=== PATIENT | female | born 1975 | race American Indian/Alaskan Native ===

== ENCOUNTER 2019-04-03 07:53 | Emergency (ER) | payer MEDICAID, OTHER ==
[2019-04-03 07:58] VITALS: BP 142/96
--- NOTE | 2019-04-03 08:33 | Emergency Department Report ---
ED ENT HPI - General Chief complaint: Earache Stated complaint: BOTH EARS CLOGGED Time Seen by Provider: 04/03/19 08:27 Source: patient Mode of arrival: Ambulatory Limitations: No Limitations - History of Present Illness Initial comments: 43-year-old -Citizen Of The [place] female presents to the emergency room for clogged ears since last . Patient tried using [id number] eardrops without much success. Patient does admit to have been a past medical history of asthma and seasonal allergies. He chills or nausea no vomiting no headache. MD complaint: ear pain Onset/Timin -: days(s) Location: R ear, L ear Severity: moderate Quality: aching Consistency: constant Improves with: none Worsens with: none Associated Symptoms: hearing loss. denies: fever, cough, pain with swallowing, sore throat, discharge from ear - Related Data Home Medications Medication Instructions Recorded Confirmed Last Taken Cetirizine HCl 10 mg PO DAILY 11/30/14 11/30/14 11/29/14 Fluticasone Propionate 2 sprays INNOSTRIL DAILY 11/30/14 11/30/14 11/29/14 Fluticasone/Salmeterol [Advair 1 puff INHALATION BID 11/30/14 11/30/14 11/30/14 05:00 Diskus 250-50 mcg] Previous Rx's Medication Instructions Recorded Last Taken Type HYDROcodone/APAP 5-325 [Weir 1 each PO Q6HR PRN #30 tablet 11/30/14 Unknown Rx 5-325 mg TAB] Ibuprofen [Motrin] 800 mg PO TID PRN #60 tablet 11/30/14 Unknown Rx ALBUTEROL Inhaler (OR & NICU) 2 puff IH QID PRN #1 inhalation 08/04/17 Unknown Rx [ProAir HFA Inhaler] Oxymetazoline 0.05% [Afrin] 1 spray NS BID PRN #1 bottle 04/03/19 Unknown Rx Phenylephrine HCl [Sinus PE 10 mg PO TID PRN #30 tablet 04/03/19 Unknown Rx Decongestant] Allergies Allergy/AdvReac Type Severity Reaction Status Date / Time No Known Allergies Allergy Verified 04/03/19 07:54 ED Dental HPI - General Chief complaint: Earache Stated complaint: BOTH EARS CLOGGED Time Seen by Provider: 04/03/19 08:27 Source: patient Mode of arrival: Ambulatory Limitations: No Limitations - Related Data Home Medications Medication Instructions Recorded Confirmed Last Taken Cetirizine HCl 10 mg PO DAILY 11/30/14 11/30/14 11/29/14 Fluticasone Propionate 2 sprays INNOSTRIL DAILY 11/30/14 11/30/14 11/29/14 Fluticasone/Salmeterol [Advair 1 puff INHALATION BID 11/30/14 11/30/14 11/30/14 05:00 Diskus 250-50 mcg] Previous Rx's Medication Instructions Recorded Last Taken Type HYDROcodone/APAP 5-325 [Weir 1 each PO Q6HR PRN #30 tablet 11/30/14 Unknown Rx 5-325 mg TAB] Ibuprofen [Motrin] 800 mg PO TID PRN #60 tablet 11/30/14 Unknown Rx ALBUTEROL Inhaler (OR & NICU) 2 puff IH QID PRN #1 inhalation 08/04/17 Unknown Rx [ProAir HFA Inhaler] Oxymetazoline 0.05% [Afrin] 1 spray NS BID PRN #1 bottle 04/03/19 Unknown Rx Phenylephrine HCl [Sinus PE 10 mg PO TID PRN #30 tablet 04/03/19 Unknown Rx Decongestant] Allergies Allergy/AdvReac Type Severity Reaction Status Date / Time No Known Allergies Allergy Verified 04/03/19 07:54 ED Review of Systems ROS: Stated complaint: BOTH EARS CLOGGED Other details as noted in HPI Comment: All other systems reviewed and negative ENT: ear pain ED Past Medical Hx - Past Medical History Hx Hypertension: No Hx Seizures: No Hx Asthma: Yes - Surgical History Additional Surgical History: x 2 - Social History Smoking Status: Never Smoker - Medications Home Medications: Home Medications Medication Instructions Recorded Confirmed Last Taken Type Cetirizine HCl 10 mg PO DAILY 11/30/14 11/30/14 11/29/14 History Fluticasone Propionate 2 sprays INNOSTRIL DAILY 11/30/14 11/30/14 11/29/14 History Fluticasone/Salmeterol [Advair 1 puff INHALATION BID 11/30/14 11/30/14 11/30/14 05:00 History Diskus 250-50 mcg] HYDROcodone/APAP 5-325 [Weir 1 each PO Q6HR PRN #30 tablet 11/30/14 Unknown Rx 5-325 mg TAB] Ibuprofen [Motrin] 800 mg PO TID PRN #60 tablet 11/30/14 Unknown Rx ALBUTEROL Inhaler (OR & NICU) 2 puff IH QID PRN #1 inhalation 08/04/17 Unknown Rx [ProAir HFA Inhaler] Oxymetazoline 0.05% [Afrin] 1 spray NS BID PRN #1 bottle 04/03/19 Unknown Rx Phenylephrine HCl [Sinus PE 10 mg PO TID PRN #30 tablet 04/03/19 Unknown Rx Decongestant] ED Physical Exam - General Limitations: No Limitations General appearance: alert, in no apparent distress - Head Head exam: Present: atraumatic, normocephalic - Eye Eye exam: Present: normal appearance - Expanded ENT Exam Expanded TM/Canal exam: Loss of Landmarks: Right TM, Left TM (bilateral retraction of the tympanic membrane) - Neck Neck exam: Present: normal inspection - Neurological Exam Neurological exam: Present: alert, oriented X3 - Psychiatric Psychiatric exam: Present: normal affect, normal mood - Skin Skin exam: Present: warm, dry, intact, normal color. Absent: rash ED Course Vital Signs 04/03/19 07:57 Temperature 97.8 F Pulse Rate 79 Respiratory 18 Rate Blood Pressure 142/96 O2 Sat by Pulse 100 Oximetry ED Medical Decision Making - Medical Decision Making 43-year-old female comes in for bilateral ears being clogged. Patient has retracted tympanic membranes both ears. Patient be given a prescription for Afrin and Sudafed. Discussed the patient to take medication and to follow up with ear nose and throat provider. Critical care attestation.: If time is entered above; I have spent that time in minutes in the direct care of this critically ill patient, excluding procedure time. ED Disposition Clinical Impression: Retracted tympanic membrane Disposition: [id number] TO HOME OR SELFCARE Is pt being admited?: No Does the pt Need Aspirin: No Condition: Stable Instructions: Earache (ED) Additional Instructions: Please take medication as prescribed. Follow up with the ear nose and throat provider I have listed one below for your convenience. Prescriptions: Oxymetazoline 0.05% [Afrin] 1 spray NS BID PRN #1 bottle PRN Reason: Nasal Congestion Phenylephrine HCl [Sinus PE Decongestant] 10 mg PO TID PRN #30 tablet PRN Reason: Nasal Congestion Referrals: JANNY CUETO MD [Staff Physician] - 3-5 Days
== END 2019-04-03 08:40 | disposition home or self-care (01) ==
LOC: ED 07:53
DX: H73.893 Other specified disorders of tympanic membrane, bilateral (principal)
CPT/HCPCS: 99282

== ENCOUNTER 2019-07-31 08:39 | Emergency (ER) | payer OTHER, MEDICAID ==
[2019-07-31 08:56] VITALS: BP 144/84
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
== END 2019-07-31 09:49 | disposition home or self-care (01) ==
LOC: ED 08:39
DX: S39.012A Strain of muscle, fascia and tendon of lower back, initial encounter (principal); S46.911A Strain of unspecified muscle, fascia and tendon at shoulder and upper arm level, right arm, initial encounter; J45.909 Unspecified asthma, uncomplicated; Z79.899 Other long term (current) drug therapy; V49.59XA Passenger injured in collision with other motor vehicles in traffic accident, initial encounter; Y93.89 Activity, other specified; Y92.410 Unspecified street and highway as the place of occurrence of the external cause; Y99.8 Other external cause status